=== PATIENT | female | born 1965 | race Caucasian/White ===

== ENCOUNTER 2017-12-23 15:13 | Observation (INO) ==
[2017-12-23] MEDS ORDERED: ONDANSETRON 4 MG/2 ML INJECTION IVP ONE (15:17)
[2017-12-23] MEDS ORDERED: MORPHINE SULFATE 4mg INJECTION IVP ONE (15:17)
[2017-12-23] MEDS ORDERED: NS 1,000 ML IV ONE (15:17)
[2017-12-23] MEDS ORDERED: KETOROLAC 30 MG/ML INJECTION IVP ONE (15:17)
--- NOTE | 2017-12-23 15:18 | Emergency Department Report ---
Abdominal Pain HPI - General Stated Complaint: kidney stones Time Seen by Provider: 12/23/17 15:17 - Related Data Home Medications Medication Instructions Recorded Confirmed Prilosec (Omeprazole) 20 mg 20 mg PO .qd 30 Days cap 06/12/17 capsule,delayed release Previous Rx's Medication Instructions Recorded Keflex (cephalexin) 500 mg capsule 500 mg PO TID #30 cap 06/12/17 Allergies Allergy/AdvReac Type Severity Reaction Status Date / Time No Known Allergies Allergy Verified 06/12/17 10:08 [facility] Medical History (Last Reviewed 12/23/17 @ 14:15 by JUAN Arias) Kidney stones (Resolved Medical) Acne (Chronic Medical) Surgical History: x3. Tubal Ligation - 1984. Kidney stone removal - 2003 Family History: Family History (Last Reviewed 12/23/17 @ 14:15 by JUAN Arias) Mother Breast cancer Father COPD (chronic obstructive pulmonary disease) - Social History Smoking status: Never smoker Disposition Prescriptions: No Action Prilosec (Omeprazole) 20 mg capsule,delayed release 20 mg PO .qd 30 Days cap Keflex (cephalexin) 500 mg capsule 500 mg PO TID #30 cap Referrals: Bety Arceo, RADHA [Primary Care Provider] -
--- OUTSIDE RECORDS SUMMARY | 2017-12-23 15:22 | External Medical Summary | Continuity of Care Document ---
:1965 Author Organization [facility] Allergies There is no data. Medications There is no data. Problems There is no data. Procedures There is no data. Results There is no data. Encounters ACCT Visit Discharge Status Pt. Type Provider Facility Loc./Unit Complaint No. Date/Time [id number] 12/10/2012 12/10/2012 DIS Emergency Mike DamonEDW [id number] 18:48:00 20:35:00 , [facility]
--- OUTSIDE RECORDS SUMMARY | 2017-12-23 15:22 | External Medical Summary | Referral Summary ---
:1965 Author Organization [facility] Address [address] [place] [address] Care Team Providers Name Role Phone Bety Arceo Primary Care Physician Encounter [facility] [id number] Date(s): 11/03/15 - 11/03/[address] [id number] Discharge Disposition: 01-Home or Self Care Attending Physician: Tre Khan MD Vital Signs No data available for this section Problem List No data available for this section Allergies, Adverse Reactions, Alerts No data available for this section Medications No data available for this section Results No data available for this section Immunizations No data available for this section Procedures No data available for this section Social History No data available for this section Assessment and Plan No data available for this section
[2017-12-23] MEDS: SALINE FLUSH 10ml SYRINGE IVF PRN ×2 (15:41→17:41)
[2017-12-23] MEDS ORDERED: FentaNYL 100 MCG/2 ML INJECTION IVP ONE ×2 (16:21→16:59)
--- NOTE | 2017-12-23 16:31 | CT Scan Report ---
Indication: left flank pain history of stones PROCEDURE: CT renal wo con (stone estefania): Encounter: Initial Comparison: None Technique: Axial CT images were performed through the abdomen and pelvis without intravenous contrast. Coronal and sagittal two-dimensional reformats. Automated Exposure Control and Iterative Reconstruction dose reducing techniques were utilized. Findings: The lung bases are grossly clear. The unenhanced contours of the liver are unremarkable. The gallbladder is grossly normal. The spleen, mass and adrenal glands are within normal limits. The right kidney is normal. No right-sided renal or ureteral stone disease. There is a 4 mm obstructing left distal ureteral stone at the ureterovesicular junction causing mild hydronephrosis and hydroureter. No abdominal or pelvic lymphadenopathy. Bladder is otherwise normal. Uterus is normal. No free fluid or evidence of a bowel obstruction. Bone windows show a small probable bone island in the left ischial tuberosity without acute findings. Impression: Obstructing 4 mm left distal ureteral stone at the ureterovesicular junction. Findings were discussed with the ordering physician at 1623 on December 23, 2017. .
[2017-12-23] MEDS ORDERED: ONDANSETRON 4 MG/2 ML INJECTION IVP PRN (17:30)
[2017-12-23] MEDS: NS 1,000 ML IV SCH (17:41)
--- NOTE | 2017-12-23 18:00 | History & Physical Report ---
History of Present Illness Date: 12/23/17 Chief complaint: Kidney stone HPI: Kaleigh Mendoza is a 52-year-old woman with a history kidney stones. She developed left flank pain December 17, but it resolved, making her think that she passed the stone. However, her pain returned on December 21. It has been very severe and mostly in her flank. She has had hematuria as well as subjective fevers and chills. She's been nauseated and vomiting frequently. She hasn't been able to eat or drink much of anything. She feels weak, lightheaded and dizzy but hasn't passed out. She denies any sinus problems or recent illnesses. No shortness of breath or chest pain. She denies palpitations. She denies constipation, diarrhea. No leg swelling. She saw her primary care provider, Bety Arceo APRN , and received dose of pain medicine in the office. She presents [facility] emergency department on 12/23/17. Labs were unremarkable, but UA was unobtainable at the time of this H&P. Renal CT revealed a nonobstructing 4 mm left distal ureteral stone at the UVJ. Despite frequent doses of fentanyl, morphine, and a dose of Toradol, she remained in severe pain. Dr. Nicholson was consulted from the emergency department and is planning on seeing the patient in consultation. The following day. Dr. Araiza with the hospitalist service was contacted for hospital admission for symptom control. Review of Systems All systems PM: 10-point ROS was reviewed, no additional remarkable complaints except - Constitutional Constitutional: Present: as per HPI - EENMT Eyes: Absent: change in vision Nose: Absent: obstruction Mouth/Throat: Absent: sore throat, changes in swallowing - Cardiovascular Cardiovascular: Present: as per HPI Vascular: Absent: pedal edema - Respiratory Respiratory: Absent: cough, dyspnea - Gastrointestinal Gastrointestinal: Present: as per HPI - Genitourinary Genitourinary: Present: as per HPI - Musculoskeletal Musculoskeletal: Present: as per HPI - Integumentary/Breasts Integumentary: Absent: rash, wounds - Neurological Neurological: Present: as per HPI. Absent: abnormal gait - Psychiatric Psychiatric: Absent: anxiety, depression - Endocrine Endocrine: Absent: palpitations - Hematologic/Lymphatic Hematologic/Lymphatic: Absent: easy bleeding, easy bruising - Allergic/Immunologic Allergic/Immunologic: Absent: seasonal rhinorrhea Past Medical History Kidney stones Obesity, BMI 31 Surgical History: x3. Tubal Ligation - 1984. Kidney stone removal - 2003 Family History: Family History Mother Breast cancer Father COPD (chronic obstructive pulmonary disease) Family History Updates: Mother still living; hx of breast cancer. Maternal grandmother had cancer. Father of COPD at age 73. - Social History Smoking status: Never smoker Substance use type: does not use Alcohol intake frequency: does not drink Household members: spouse (Ed) Current occupational status: employed Medications Home Medications Medication Instructions Recorded Confirmed Type Omeprazole [Prilosec] 20 mg PO ACB 12/23/17 12/23/17 History Allergies Allergy/AdvReac Type Severity Reaction Status Date / Time No Known Allergies Allergy Verified 12/23/17 15:26 Exam Vital Signs: Temperature 97.3 F 12/23/17 17:48 Pulse Rate 76 12/23/17 17:48 Respiratory Rate 20 12/23/17 17:48 Blood Pressure 142/83 H 12/23/17 17:48 Pulse Oximetry 99 12/23/17 17:48 - Constitutional Present: mild distress, thin - Routine HEENT Exam Head: Present: normocephalic Eye: Present: PERRL. Absent: conjunctival icterus, scleral injection - Routine Neck Exam Present: supple (Viviana). Absent: lymphadenopathy - Routine Respiratory Exam Present: CTA bilaterally - Routine Cardiovascular Exam Present: RRR (review), S1, S2 - Routine Abdominal Exam Present: normoactive bowel sounds, tenderness (LLQ & Left flank + guarding LLQ) , distended (mild) - Routine Extremities Exam Present: no edema, pulses intact, normal capillary refill. Absent: calf tenderness - Routine Skin Exam Present: intact, dry, warm - Routine Neurological Exam Present: alert, oriented X3, CN II-XII intact, moving all extremities, vision grossly intact, hearing grossly intact, normal speech. Absent: facial asymmetry - Routine Psychiatric Exam Present: normal affect, normal thought process, cooperative Results - Labs CBC & Chem 7: 12/23/17 15:40 12/23/17 15:40 Assessment and Plan (1) Kidney stones Current visit: No Status: Acute Assessment and Plan: Admission diagnoses Left-sided obstructive kidney stone. Intractable pain secondary to above Plan Admit, observation status, under the hospitalist service. Start IV fluids at 150 mL per hour. For pain control, she may have fentanyl and Toradol. She may also have [place] this evening. She developed chest tightness with morphine, and requests not to be given morphine. Zofran as needed for nausea. Dr. Nicholson has been consulted from the emergency department. He would like the patient nothing by mouth after midnight. Flomax has been started. Strain urine. Urinalysis is pending. Recheck CBC and BMP in the morning. Discussed with Dr. Araiza. Teodora Assessment as above with: Renal colic, elevated blood pressure - suspect secondary to acute pain. DVT Prophylaxis: SCD's Resuscitation Status: Full Code - Physician Narrative Physician: Hamzah Araiza MD Narrative: Date: 12/23/17 Time: 1909 Have independently interviewed and examined pt. Chart reviewed. Case discussed with ED physician and my [employer]. Care plan developed with my supervision; agree with above. Developed flank pain with n/v on Sunday 12/17-very severe, very miserable. Pain did defervesce-thought she had a stone and it past. Did well until Friday when pain returned. Couldn't get comfortable position. Significant N/V. Persistent symptoms. Did go see PCP today-indeed, drove herself to clinic as pain was decreasing. Unfortunately, on way to clinic pain returned. Very nauseated in clinic. Evaluated in ED with finding of stone. Lungs: clear bilaterally CV: regular AB: soft nt/nd Decreased BS MSE:awake alert appropriate Plan: OBS for treatment of renal stone. IVF for hydration and to help stone pass. Flomax at night to decrease spasm of ureter. Control pain and nausea. Urological evaluation for definitive treatment. SCD for DVT prevention. Full code. High risk medication involved: IV Fentanyl. Hospital Course Summary Disclaimer: The visit summary below is not to be considered part of the above Progress Note. Hospital Course: 12/23/17 Admit, observation status, under the hospitalist service for obstructing left kidney stone. Start IV fluids at 150 mL per hour. For pain control, she may have fentanyl and Toradol. She may also have [place] this evening. She developed chest tightness with morphine, and requests not to be given morphine. Zofran as needed for nausea. Dr. Nicholson has been consulted from the emergency department. He would like the patient nothing by mouth after midnight. Flomax has been started. Strain urine. Urinalysis is pending. Recheck CBC and BMP in the morning.
[2017-12-23] MEDS ORDERED: HYDROCODONE/APAP 7.5 MG/325 MG TABLET PO PRN (18:04)
[2017-12-23] MEDS: KETOROLAC 30 MG/ML INJECTION IVP PRN (18:11)
[2017-12-23] MEDS ORDERED: TAMSULOSIN 0.4 MG CAPSULE PO SCH (21:00)
[2017-12-23] MEDS: FentaNYL 100 MCG/2 ML INJECTION IVP PRN (23:34)
[2017-12-24] MEDS: NS 1,000 ML IV SCH ×2 (00:35→07:38)
[2017-12-24] MEDS: FentaNYL 100 MCG/2 ML INJECTION IVP PRN (01:35)
[2017-12-24] MEDS: KETOROLAC 30 MG/ML INJECTION IVP PRN ×2 (02:10→11:41)
[2017-12-24] MEDS ORDERED: LR 1,000 ML IV SCH (08:45)
[2017-12-24] MEDS ORDERED: CEFAZOLIN 1 G INJECTION IVP ONE (08:50)
[2017-12-24] MEDS ORDERED: SCOPOLAMINE 1mg/3 days PATCH TD ONE (10:21)
[2017-12-24] MEDS ORDERED: MIDAZOLAM 2mg/2ml INJECTION IVP ONE (10:21)
--- NOTE | 2017-12-24 10:21 | Anesthesia Preoperative Report ---
Anesthesia Preoperative Record - Date and Time Date: 12/24/17 Preoperative Diagnosis: Kidney stone Proposed Procedure: Cysto, stone extraction NPO Since Date: 12/23/17 NPO Since Time: 23:45 Allergies/Adverse Reactions: Allergies Allergy/AdvReac Type Severity Reaction Status Date / Time No Known Allergies Allergy Verified 12/24/17 08:36 - Vital Signs Vital Signs: Temperature 98.1 F 12/24/17 08:44 Pulse Rate 75 12/24/17 08:51 Respiratory Rate 13 12/24/17 08:44 Blood Pressure 143/69 H 12/24/17 08:44 Pulse Oximetry 97 12/24/17 08:44 Height and Weight: Weight 73.2 kg - Medications Inpatient Medications: Current Medications Hydrocodone Bitart/Acetaminophen ([place]lin 7.5/325) 1 - 2 tab PO Q4H PRN PRN Reason: Pain Fentanyl (Fentanyl) 50 mcg IVP Q1HR PRN Last Admin: 12/24/17 01:35 Dose: 50 mcg Sodium Chloride (Normal Saline) 1,000 mls @ 150 mls/hr IV .Q6H40M [facility] Last Infusion: 12/24/17 08:32 Dose: 0 mls/hr Lactated Ringer's (Lactated Ringers) 1,000 mls @ 50 mls/hr IV .Q20H [facility] Last Admin: 12/24/17 08:58 Dose: 50 mls/hr Ketorolac Tromethamine (Toradol Inj) 30 mg IVP Q6H PRN PRN Reason: Pain Stop: 12/28/17 18:04 Last Admin: 12/24/17 02:10 Dose: 30 mg Ondansetron HCl (Zofran) 4 mg IVP Q4H PRN PRN Reason: Nausea Sodium Chloride (Iv Flush) 10 - 80 ml IVF PRN PRN PRN Reason: Flushing Last Admin: 12/23/17 17:41 Dose: 10 ml Tamsulosin HCl (Flomax) 0.4 mg PO HS [facility] Last Admin: 12/23/17 20:53 Dose: 0.4 mg Home Medications: Home Medications Medication Instructions Recorded Confirmed Type Omeprazole [Prilosec] 20 mg PO ACB 12/23/17 12/24/17 History Is Patient on Beta Herber?: No - Medical History Respiratory: DENIES: Asthma, Bronchitis, Chronic Obstructive Pulmonary Disease (COPD), Dyspnea, Orthopnea, Pulmonary Embolism, Pneumonia, Upper Respiratory Infection, Pulmonary Edema, Sleep Apnea, Tuberculosis, Other Cardiovascular: DENIES: Abnormal EKG, Angina, Arrhythmia, Congestive Heart Failure, Coronary Artery Disease, Heart Murmur, Hypertension, Hypotension, High Cholesterol, Myocardial Infarction, Rheumatic Fever, Valvular Heart Disease, Other Gastrointestional: Reports: Gastroesophageal Reflux Disease (TAKES PRILOSEC DAILY) DENIES: Obstructive Bowel, Hepatitis, Cirrhosis, Nausea or Vomiting Present, Gastrointestinal Bleeding, Hiatal Hernia, Ulcer, Morbid Obesity, Other Neuro/Musculoskeletal: Denies: HX.MS.OSAR, Back Problems, Cerebrovascular Accident, Depression, Headaches, Loss of Consciousness, Muscle Weakness, Neuromuscular Disorder, Paralysis, Paresthesia, Syncope, Seizures, Other Renal/Endocrine: DENIES: Diabetes Mellitus Type 1, Diabetes Mellitus Type 2, Renal Failure, Dialysis, Thyroid Disease, Weight Loss, Weight Gain, Other Other History: DENIES: Anesthesia Reactions, Now, Blood Transfusions, Chemotherapy , Cancer, Hemophilia, Malignant Hyperthermia, Sickle Cell Disease, Other - Surgical History Reproductive Surgery/Treatment: Reports: Section (X3) Anesthesia Reactions: None Hx Family Anesthesia Reaction: No History of Motion Sickness: Yes - Social History Smoking Status: Never smoker Hx Chewing Tobacco Use: No Second Hand Exposure: No Substance Use Type: does not use Alcohol Intake: current Alcohol Intake Frequency: does not drink - Pertinent Findings Laboratory: CBC and BMP 12/24/17 04:19 12/24/17 04:19 BMP 12/24/17 04:19 Sodium 140 Potassium 4.0 Chloride 112 H D Carbon Dioxide 24 BUN 14.0 Creatinine 1.0 Glucose 94 Calcium 7.8 L D Urine 12/24/17 Range/Units 07:32 Urine Color Yellow (YELLOW) Urine Clarity Clear Urine pH 6.0 (5.0-8.0) Ur Specific [place] 1.025 (1.015-1.025) Urine Protein Negative (NEGATIVE) Urine Glucose (UA) Negative (NEGATIVE) EKG: Sinus Rhythm - Physical Exam Respiratory Exam: Present: lungs clear, bilateral breath sounds equal Cardiovascular Exam: Present: regular rate and rhythm, no murmur - Airway Assessment Mallampati Score: I TMD: 3 Fingerbreadths Neck Extension: good Teeth: patial upper dentures, partial lower dentures Overall Assessment: no airway concerns - ASA ASA Score: 2 - Plan Anesthesia: General Inhalation Gases (LMA) - Discussion Discussion: Discussed risks/options/alternatives of anesthesia and questions answered. Patient consents. Nursing pain assessment noted. Present for Discussion: spouse Attestation Statement: Prior to the delivery of any anesthetic medication, I examined the patient, developed the plan, obtained the patient's consent and discussed the risk and benefits of the procedure with the patient/guardian. - Additional Information Seen by Anesthesia: Yes
[2017-12-24] MEDS ORDERED: DEXAMETHASONE 4 MG/ML INJECTION ONE (10:41)
[2017-12-24] MEDS ORDERED: FentaNYL 100 MCG/2 ML INJECTION ONE (10:41)
[2017-12-24] MEDS ORDERED: PROPOFOL 20 ML ONE (10:41)
--- NOTE | 2017-12-24 12:10 | Anesthesia Postoperative Note ---
- Date and Time Date: 12/24/17 Time: 12:10 - Status Patient Participated in Evaluation: Patient Participated in Person Vital Signs: Temperature 97.5 F 12/24/17 11:30 Pulse Rate 68 12/24/17 12:05 Respiratory Rate 12 12/24/17 12:05 Blood Pressure 121/72 12/24/17 12:05 Pulse Oximetry 98 12/24/17 12:05 Respiratory Function: Airway Patent, Regular Respirations Cardiovascular Function: Regular Pulse EKG: Sinus Rhythm Mental Status: Alert and Oriented Pain Intensity: 0 Hydration: IV Infusing Complications During Recover: None Apparent - Follow-Up Instructions Instructions: Per Surgeon
[2017-12-24 12:36] VITALS: RESP 16; TEMP 96.2
--- NOTE | 2017-12-24 13:05 | Progress Note ---
- Date 12/24/17 Subjective: F/U: Kidney stones, renal colic Doing well this afternoon-tired/groggy from procedure but pain and nausea resolved. Very glad to have procedure done. Breathing well-not SOA or congested. No chest pain. Passing urine-slight discomfort and blood. Feels ready to go home. Objective Vital signs: Temperature 96.2 F L 12/24/17 12:20 Pulse Rate 74 12/24/17 12:20 Respiratory Rate 16 12/24/17 12:20 Blood Pressure 123/71 12/24/17 12:20 Pulse Oximetry 91 12/24/17 12:20 Height/Weight/BMI: Weight 73.2 kg - Constitutional Present: well nourished, well developed, average body habitus, cooperative - Routine HEENT Exam Head: Present: normocephalic, atraumatic Eye: Present: EOMI, PERRL ENT: Present: mucous membranes moist - Routine Respiratory Exam Present: CTA bilaterally. Absent: respiratory distress - Routine Cardiovascular Exam Present: RRR, no murmur - Routine Abdominal Exam Present: soft, normoactive bowel sounds, non distended, non tender. Absent: guarding - Routine Extremities Exam Present: no edema, pulses intact. Absent: cyanosis, clubbing - Routine Musculoskeletal Exam Musculoskeletal: Present: no clubbing or cyanosis, normal strength - Routine Skin Exam Present: dry, warm - Routine Neurological Exam Present: alert, oriented X3, CN II-XII intact, moving all extremities, vision grossly intact, hearing grossly intact, normal speech. Absent: motor deficit - Routine Psychiatric Exam Present: normal affect, normal thought process, cooperative Results - Labs CBC & Chem 7: 12/24/17 04:19 12/24/17 04:19 Assessment and Plan (1) Kidney stones Current visit: No Status: Acute Assessment and Plan: Admission diagnoses Left-sided obstructive kidney stone Renal colic/intractable pain secondary to above Elevated blood pressure secondary to pain - resolved Plan Will discharge to home as medically doing well post procedure. May have diet as tolerated. Eva 7.5 prn severe pain, Zofran prn nausea. Discussed potential side effects of Eva (nausea, constipation, confusion, dependency/abuse). Increase activities as able. May return to work on 12/26/17. Will follow up with Dr Ellington on Friday - his office will call for appointment. Continue to follow with Bety Arceo as needed for medical concerns. See orders for discharge details. Time spent with patient care and discharge greater than 30 minutes. DVT Prophylaxis: SCD's Resuscitation Status: Full Code - Physician Narrative Physician: Hamzah Araiza MD Narrative: Date: 12/24/17 Time: 1301 Hospital Course Summary Disclaimer: The visit summary below is not to be considered part of the above Progress Note. Hospital Course: 12/23/17 Admit, observation status, under the hospitalist service for obstructing left kidney stone. Start IV fluids at 150 mL per hour. For pain control, she may have fentanyl and Toradol. She may also have Eva this evening. She developed chest tightness with morphine, and requests not to be given morphine. Zofran as needed for nausea. Dr. Nicholson has been consulted from the emergency department. He would like the patient nothing by mouth after midnight. Flomax has been started. Strain urine. Urinalysis is pending. Recheck CBC and BMP in the morning. 12/24/17 OP DAY Will discharge to home as medically doing well post procedure. May have diet as tolerated. Eva 7.5 prn severe pain, Zofran prn nausea. Discussed potential side effects of Eva (nausea, constipation, confusion, dependency/abuse). Increase activities as able. May return to work on 12/26/17. Will follow up with Dr Ellington on Friday - his office will call for appointment. Continue to follow with Bety Arceo as needed for medical concerns. See orders for discharge details.
--- NOTE | 2017-12-24 13:11 | Work/School Release ---
Work/School Release - Date Date: 12/24/17 - Work Release Remain off work/school for:: Simi Mendoza was hospitalized at [facility] from 12/23/17 until . She may return to work on 12/26/17. She will need outpatient medical follow up on 12/29/17
--- NOTE | 2017-12-24 13:34 | Discharge Summary ---
Discharge Information Date of admission: 12/23/17 17:17 Anticipated date of discharge: 12/24/17 Attending Physician: Hamzah Araiza MD Primary care physician: Bety Arceo APRN Consults: Physician Consult : Sorin Nicholson Reason For Exam: left kidney stone - Discharge Diagnosis (1) Kidney stones Status: Acute Discharge diagnosis Left-sided obstructive kidney stone Associated conditions and complications Renal colic/intractable pain secondary to above Elevated blood pressure secondary to pain - resolved - Procedures Procedures: DATE OF SURGERY: 12/24/2017 PREOPERATIVE DIAGNOSIS: Left ureteral stone. POSTOPERATIVE DIAGNOSIS: Left ureteral stone. PROCEDURES PERFORMED 1. Cystoscopy, left retrograde pyelogram. 2. Left ureteroscopy with laser lithotripsy. 3. Stone-basketing. 4. Left stent placement. PRIMARY SURGEON: Sorin Nicholson MD - Laboratory Labs: Admit Lab 12/23/17 15:40 WBC 9.0 Hgb 12.3 Hct 37.9 MCV 81.9 Plt Count 325 Neut % (Auto) 70.7 H Lymph % (Auto) 22.1 L Pike % (Auto) 5.2 Eos % (Auto) 0.9 Baso % (Auto) 1.0 Admit Lab 12/23/17 15:40 Sodium 141 Potassium 3.8 Chloride 104 Carbon Dioxide 24 Anion Gap 13 BUN 13.0 Creatinine 0.9 GFR Calculation 65 BUN/Creatinine Ratio 14 Glucose 95 Calculated Osmolality 271 Calcium 9.7 Total Bilirubin 0.50 AST 22 ALT 28 Alkaline Phosphatase 83 Troponin I < 0.012 Total Protein 8.4 H Albumin 4.8 Globulin 3.6 Albumin/Globulin Ratio 1.3 Lipase 48 12/24/17 04:19 12/24/17 04:19 Pending Lab at discharge 12/24/17 11:25 Stone Source Pending Stone Constituent 1 Pending - Radiology Radiology: Date of Exam: 12/23/17 PROCEDURE: CT renal wo con (stone estefania) Findings: The lung bases are grossly clear. The unenhanced contours of the liver are unremarkable. The gallbladder is grossly normal. The spleen, mass and adrenal glands are within normal limits. The right kidney is normal. No right- sided renal or ureteral stone disease. There is a 4 mm obstructing left distal ureteral stone at the ureterovesicular junction causing mild hydronephrosis and hydroureter. No abdominal or pelvic lymphadenopathy. Bladder is otherwise normal. Uterus is normal. No free fluid or evidence of a bowel obstruction. Bone windows show a small probable bone island in the left ischial tuberosity without acute findings. Impression: Obstructing 4 mm left distal ureteral stone at the ureterovesicular junction. History of Present Illness HPI: Kaleigh Mendoza is a 52-year-old woman with a history kidney stones. She developed left flank pain December 17, but it resolved, making her think that she passed the stone. However, her pain returned on December 21. It has been very severe and mostly in her flank. She has had hematuria as well as subjective fevers and chills. She's been nauseated and vomiting frequently. She hasn't been able to eat or drink much of anything. She feels weak, lightheaded and dizzy but hasn't passed out. She denies any sinus problems or recent illnesses. No shortness of breath or chest pain. She denies palpitations. She denies constipation, diarrhea. No leg swelling. She saw her primary care provider, Bety Arceo APRN , and received dose of pain medicine in the office. She presents [facility] emergency department on 12/23/17. Labs were unremarkable, but UA was unobtainable at the time of this H&P. Renal CT revealed a nonobstructing 4 mm left distal ureteral stone at the UVJ. Despite frequent doses of fentanyl, morphine, and a dose of Toradol, she remained in severe pain. Dr. Nicholson was consulted from the emergency department and is planning on seeing the patient in consultation. The following day. Dr. Araiza with the hospitalist service was contacted for hospital admission for symptom control. For complete details of the H&P refer to that document. Objective Vital signs: Temperature 96.2 F L 12/24/17 12:20 Pulse Rate 74 12/24/17 12:20 Respiratory Rate 16 12/24/17 12:20 Blood Pressure 123/71 12/24/17 12:20 Pulse Oximetry 91 12/24/17 12:20 Height/Weight/BMI: Weight 73.2 kg Hospital Course This is a general summary of the patient's hospital course. For more details refer to the complete medical record. Hospital course: 12/23/17 Admit, observation status, under the hospitalist service for obstructing left kidney stone. Start IV fluids at 150 mL per hour. For pain control, she may have fentanyl and Toradol. She may also have Mooers this evening. She developed chest tightness with morphine, and requests not to be given morphine. Zofran as needed for nausea. Dr. Nicholson has been consulted from the emergency department. He would like the patient nothing by mouth after midnight. Flomax has been started. Strain urine. Urinalysis is pending. Recheck CBC and BMP in the morning. 12/24/17 OP DAY Will discharge to home as medically doing well post procedure. May have diet as tolerated. Mooers 7.5 prn severe pain, Zofran prn nausea. Discussed potential side effects of Mooers (nausea, constipation, confusion, dependency/abuse). Increase activities as able. May return to work on 12/26/17. Will follow up with Dr Ellington on Friday - his office will call for appointment. Continue to follow with Bety Arceo as needed for medical concerns. See orders for discharge details. Time spent with patient: discharge greater than 30 minutes Resuscitation Status: Full Code Discharge Plan - Discharge Disposition Discharge Date: 12/24/17 Disposition: Discharged Home, Self-Care *Condition: Stable Reason For Visit (Visit label in EMR): Kidney stone - Discharge Medications *Discharge Medications: New Hydrocodone/APAP 7.5/325 [Mooers 7.5/325] 1 - 2 tab PO Q4H PRN #30 tab PRN Reason: Pain Ondansetron HCl 4 mg PO Q6HR PRN #20 tab PRN Reason: Nausea Milk of Magnesia [Mom] 30 ml PO DAILY PRN #1 bottle PRN Reason: Constipation Bisacodyl Supp [Dulcolax] 10 mg IN DAILY PRN #1 box PRN Reason: Constipation Continue Omeprazole [Prilosec] 20 mg PO ACB - Discharge Packet/Instructions *Diet: Advance diet as able. *Activity: Increase activities as able. Return to work on 12/26/17 *Pain Management/Treatment: Mooers as needed for severe pain. *Wound Care: N/A *Expected Signs/Symptoms: Decreasing urinary discomfort and bloody urine. *Notify Physician if: Temp >100.4. Increasing flank/abdominal pain. Intractable N/V. *During Business Hours Contact: Dr Nicholson for urological care or Bety Arceo for medical concerns. *After Business Hours Contact: Call [facility] and have your care provider contacted. *Pending Lab/Results: Follow up w/Provider (Stone analysis) - Referrals/Follow Up *Referrals/Follow Up: Sorin Nicholson MD [Physician] - (Follow up on Friday12/29/17 - his office will call for appointment. ) - Patient Handouts Patient Handouts: [facility] Cysto & Stent Placement,Ureteroscopy and ESWL - Dismissal Complete Discharge Instructions are:: Complete Physician Narrative - Narrative Physician: Hamzah Araiza MD Attestation Narrative: Date: 12/24/17 Time: 1338 I have independently interviewed and examined patient prior to discharge. See my progress note from today for details. Medically stable for discharge to home.
--- NOTE | 2017-12-24 13:59 | Remote Fluorsocopy Report ---
Indication: LT HYDRONEPHROSIS PROCEDURE: RF retrograde pyelogram LT: Encounter: Initial Comparison: Renal CT dated December 23, 2017 Findings: Seven fluoroscopic spot images are submitted for interpretation. Images show retrograde injection of contrast into the left renal collecting system with mild calyceal blunting by placement of a left-sided double-J stent which projects in appropriate position. Impression: Fluoroscopy as above. Fluoroscopy time is 21.5 seconds. Fluoroscopy dose is 635.7 mRad. .
--- NOTE | 2017-12-24 16:10 | Operative Note ---
DATE OF SURGERY 12/24/2017 PREOPERATIVE DIAGNOSIS Left ureteral stone. POSTOPERATIVE DIAGNOSIS Left ureteral stone. PROCEDURES PERFORMED 1. Cystoscopy, left retrograde pyelogram. 2. Left ureteroscopy with laser lithotripsy. 3. Stone-basketing. 4. Left stent placement. PRIMARY SURGEON Sorin Nicholson MD RADIOLOGIC FINDINGS Left retrograde pyelogram showed left moderate hydronephrosis. SPECIMEN Removed stones. DRAINS 6 x 24 left double-J stent. INDICATIONS FOR PROCEDURE This is a 52-year-old female with a one-week history of intermittent left flank pain. Her pain became intolerable and she was seen in the ER yesterday. She was admitted to the hospital for pain control. Urology was consulted for management. After discussion of her options she elected to proceed to the OR for left ureteroscopy. DESCRIPTION OF PROCEDURE The patient was identified in the preoperative holding area. The procedure was explained to her and she agreed to proceed. She was taken back to the operating room where she was placed supine on the operating table. General anesthesia was induced. She was then placed in the dorsal lithotomy position. The genitalia were prepped and draped in the usual fashion. At this time a formal timeout was done - all persons in the room were in agreement. I began the procedure by introducing a urethroscope inside the bladder. The two UOs were orthotopic in position. A 5-Fr ureteral catheter was used to intubate the left UO. I then placed a Sensor wire in the left kidney. This was done under fluoroscopic guidance. The 5-Fr was then removed and the bladder was emptied. The scope was removed. I reintroduced my rigid urethroscope alongside the wire inside the bladder. I was able to pass my urethroscope without problems in the distal ureter. I immediately identified the stone in the distal ureter. A Holmium laser fiber was used to break the stone into two fragments. I then removed the two fragments using a basket. I then shot a left retrograde pyelogram that showed left hydronephrosis. There were no residual stones left in the ureter. The urethroscope was then removed. A 6 x 24 double-J stent was placed over the wire under fluoroscopic guidance and advanced to the level of the left kidney. The wire was then removed and I observed a nice curl of the stent in the kidney and the bladder. The bladder was emptied. The string from the stent was secured to the patient's inner thigh. This concluded the procedure. DISPOSITION The patient will be discharged home today. We will remove her stent next Friday. YVETTE
[2017-12-24 16:37] VITALS: BP 118/76; PULSE 87; O2SAT 98
[2017-12-27] MEDS ORDERED: SCOPOLAMINE PATCH REMOVAL TD ONE (06:00)
== END 2017-12-24 14:54 | disposition home or self-care (01) ==
LOC: SRG 15:13 → ED 15:13 → SRG 17:35
PROVIDERS: ADMIT Hospitalist; ATTEND Hospitalist